=== PATIENT | male | born 1940 | race Two or more races ===

== ENCOUNTER 2024-04-18 11:04 | Emergency (ER) | payer OTHER, SELFPAY ==
--- NOTE | 2024-04-18 11:23 | PD.EDRME ---
Rapid Medical Screening Exam RME Arrival date/time: 04/18/24 11:04 Chief Complaint: Fall Time Seen by Provider: 04/18/24 11:20 RME Narrative: Home nurse was taking patient outside this morning when he fell and hit back of head against the door. No loc. patient takes xarelto.
--- NOTE | 2024-04-18 11:24 | XR_ITS ---
Examination: CT brain head without contrast. 2-D sagittal coronal reconstructions Date and time of exam:April 18, 2024 1134 hours Comparison October 31, 2023 INDICATIONS: Patient fell today with injury to the head, head pain CTDI: vol (mGy):50.9 DLP: (mGycm):1104 Technique: Multiple CT axial sections of the brain have been obtained, 5 mm slice thickness. Contrast has not been administered. 2-D sagittal, coronal reconstructions have been obtained Low dose protocols were performed. One or more of the following dose reduction techniques were used; automated exposure control, adjustment of the mA and/or KV according to patient size, use of iterative reconstruction technique. Findings: Mild ventricular enlargement. Intra-axial or extra-axial hemorrhage density is not seen. No mass effect or midline shift Basal cisterns are not remarkable. Fourth ventricle is midline. Cranial vault intact. Impression: Negative for acute hemorrhage, mass effect or midline shift
--- NOTE | 2024-04-18 11:24 | XR_ITS ---
Examination: CT cervical spine without contrast 2-D sagittal reconstructions 2-D coronal reconstructions 3-D reconstructions. Exam date and time:April 18, 2024 1134 hours INDICATIONS: Patient fell today with into the neck, neck pain CTDI:vol (mGy) 7.66 DLP: (mGycm) 183 Technique: Multiple 2 mm axial sections of the cervical spine have been obtained. The coronal and sagittal reconstructions have been obtained. 3-D reconstructions have been obtained. Low dose protocols were performed. One or more of the following dose reduction techniques were used; automated exposure control, adjustment of the mA and/or KV according to patient size, use of iterative reconstruction technique. Findings: Axial sections demonstrate intact base of the skull. C1 exhibit satisfactory relationship to the odontoid. No acute cervical vertebral body fracture seen. Alignment posterior spinous processes satisfactory. Advanced degenerative disc disease C4-C5 C6-C7 Impression: No acute cervical fracture. Very heavy carotid vascular calcification, consider correlation with carotid Doppler sonography follow-up
[2024-04-18 11:30] VITALS: BP 128/70; PULSE 60; RESP 16; TEMP 36.7; O2SAT 97; BMI 22.3
--- NOTE | 2024-04-18 12:05 | PD.EDFALL ---
ED Fall Injury RME/HPI General Chief Complaint: Fall Stated Complaint: Fall hit back of his head Time Seen by Provider: 04/18/24 11:20 Source: patient, family, RN notes reviewed and old records reviewed Arrival date/time: 04/18/24 11:04 Mode of arrival: wheelchair Limitations: no limitations RME / HPI RME / HPI Narrative: 84yom with pmhx dementia, decreased mobility presents to ED with son for head injury that occurred this morning. [facility] states home health care nurse was transferring patient outside when they lost their balance, patient hit back of head against the doorknob. No LOC or n/v reported. Patient c/o mild headache, no neck pain. 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 Of note, patient has pacemaker and is on Xarelto. Related Data Home Medications ?Medication ?Instructions ?Recorded ?Confirmed cartilage 40 mg-collagen II 10 1 tab PO QDAY 09/03/20 02/23/23 mg-boron 5 mg-hyaluronate 3.3 mg tablet (Invup) cholecalciferol (vitamin D3) 25 25 mcg PO QDAY 09/03/20 02/23/23 mcg (1,000 unit) tablet finasteride 5 mg tablet 5 mg PO QDAY 09/03/20 02/23/23 levothyroxine 175 mcg tablet 175 mcg PO QDAY 09/03/20 02/23/23 lisinopril 5 mg tablet 5 mg PO QDAY 09/03/20 02/23/23 omega-3 fatty acids 500 mg capsule 1,000 mg PO QDAY 09/03/20 02/23/23 pantoprazole 40 mg tablet,delayed 40 mg PO QDAY 09/03/20 02/23/23 release rivaroxaban 20 mg tablet 20 mg PO QDAY 09/03/20 02/23/23 tamsulosin 0.4 mg capsule 0.8 mg PO QDAY 09/03/20 02/23/23 atorvastatin 80 mg tablet 80 mg PO QDAY 10/25/23 10/25/23 cefuroxime axetil 500 mg tablet mg 10/25/23 finasteride 5 mg tablet 5 mg PO QDAY 10/25/23 10/25/23 lacosamide 100 mg tablet (Vimpat) 150 mg PO BID 10/25/23 10/25/23 levetiracetam 500 mg 1,000 mg PO BID 10/25/23 10/25/23 tablet,extended release 24 hr levofloxacin 750 mg tablet mg 10/25/23 levothyroxine 125 mcg tablet 125 mcg PO QDAY 10/25/23 10/25/23 Previous Rx's ?Medication ?Instructions ?Recorded levetiracetam 1,000 mg tablet 1,000 mg PO BID #60 tabs 04/08/21 (Keppra) cefuroxime axetil 500 mg tablet 500 mg PO BID #14 tabs 07/28/23 cephalexin 500 mg capsule 500 mg PO BID #10 caps 10/31/23 ciprofloxacin HCl 500 mg tablet 500 mg PO BID #14 tabs 12/17/23 (Cipro) acetaminophen 500 mg tablet 500 mg PO Q6H PRN pain #30 tabs 04/18/24 (Tylenol Extra Strength) Allergies Allergy/AdvReac Type Severity Reaction Status Date / Time No Known Allergies Allergy Verified 12/17/23 11:17 Review of Systems Review of Systems Systems Reviewed: All systems reviewed, normal except as documented Constitutional Constitutional: Reports headache(s) ENT Ears, Nose, Mouth, and Throat: Denies dizziness, Reports headache(s) and Denies neck pain Cardiovascular Cardiovascular: Denies syncope Musculoskeletal Musculoskeletal: Denies neck pain Neurologic Neurologic: Denies dizziness, Reports headache(s) and Denies syncope Past Medical History Past Medical History NEUROLOGIC: Positive Dementia and Seizures CARDIAC: Positive Cardiac Disorders, Coronary Artery Disease, Hypercholesterolemia and Hypertension; Negative Congestive Heart Failure RESPIRATORY: Negative Chronic Obstructive Pulmonary Disease (COPD) GASTROINTESTINAL: Positive Gastrointestinal Disorders and Gastroesophageal Reflux Disease GENITOURINARY: Positive Genitourinary Disorders and Benign Prostatic Hyperplasia; Negative Renal Disease ENDOCRINE: Positive Endocrine Disorders and Hypothyroidism; Negative Diabetes Mellitus Type 1 or Diabetes Mellitus Type 2 Surgical History SURGICAL: Positive Coronary Artery Bypass Graft and Pacemaker Social History SMOKING STATUS: Never smoker ED Exam General Limitations: Present no limitations General appearance: Present alert and in no apparent distress Head Head exam: Present normocephalic and other (Small posterior scalp contusion/hematoma) Eye Eye exam: Present normal appearance, PERRL and EOMI ENT ENT exam: Present normal exam and mucous membranes moist Neck Neck exam: Present normal inspection and full ROM; Absent tenderness Chest Chest inspection: Present normal inspection and symmetric chest wall rise Respiratory Respiratory exam: Present normal lung sounds bilaterally; Absent respiratory distress Cardiovascular Cardiovascular exam: Present regular rate and normal rhythm Extremities Exam Extremities exam: Present normal inspection and full ROM; Absent tenderness Back Exam Back exam: Absent paraspinal tenderness or vertebral tenderness Neurological Exam Neurological exam: Present alert and other (Neuro at baseline) Psychiatric Psychiatric exam: Present normal affect and normal mood Skin Skin exam: Present warm, dry, intact and normal color Course Quality Measures none Orders Category Date Time Status CT cervical spine wo con Stat Exams 04/18/24 11:[address] head/brain wo con Stat Exams 04/18/24 11:24 Completed Acetaminophen Tab [Tylenol ES Tab] Med 04/18/24 12:05 Discontinued 1,000 mg PO X1 ONE Vital Signs Vital signs: Vital Signs Temperature 98.1 F 04/18/24 11:30 Pulse Rate 60 04/18/24 11:30 Respiratory Rate 16 04/18/24 11:30 Blood Pressure 128/70 04/18/24 11:30 Pulse Oximetry (%) 97 04/18/24 11:30 Oxygen Delivery Method Room Air 04/18/24 11:30 Fall MDM Narrative MDM Narrative:: 84yom with pmhx dementia, decreased mobility presents to ED with son for head injury that occurred this morning. [facility] home health care nurse was transferring patient outside when they lost their balance, patient hit back of head against the doorknob. No LOC or n/v reported. Patient c/o mild headache, no neck pain. 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 Of note, patient has pacemaker and is on Xarelto. Imaging is negative, no evidence of ICH or cervical fracture. Patient neuro at baseline. Recommended ice application for scalp swelling, Tylenol prn pain. Stable for discharge, RTED precautions given. Patient data External records reviewed:: [facility] previous records (12/17/2023 ED visit for COVID) Clinical information provided by:: patient and family (Son) Social determinants that could affect healthcare access:: none Patient has the following chronic illnesses:: Chronic anticoagulation use, dementia How is presenting disease/condition affected by chronic disease/condition?: exacerbated by Evaluation data The following diagnostics were reviewed and interpreted by me:: radiology exam(s) Lab and/or radiology exams considered but not ordered:: CBC, CMP, coags Interpretation Summary: CT head: No evidence of ICH per my read Medications / Prescriptions Medications or Prescriptions considered but not ordered:: None Medication administrations:: Medication Administration History Discontinued Medications Acetaminophen (Acetaminophen 500 Mg Tablet) 1,000 mg PO X1 ONE Stop: 04/18/24 12:06 Last Admin: 04/18/24 12:14 Dose: 1,000 mg Documented By: ED Above medication administered in ED Consultations Consultation(s) initiated? (list below): No Diagnosis Fall Differential Diagnosis: other (Contusion, hematoma, laceration, abrasion, ICH, skull fracture, fall) Most likely diagnosis given after review of the tests above:: Scalp contusion Admission Indicated Admission indicated?: not indicated Admission Request Was there a request for admission?: No Disposition Plan Disposition Plan: Discharge Discharge Attestation Discharge Attestation: The patient and all family members were given an opportunity to ask questions and understood the discharge instructions. Discharge instructions specifically effects, indications for sooner follow up or return to the emergency department, and the expected course of current diagnosis. Patient condition: Stable Discharge Plan Plan Patient Disposition: HOME (Self Care) Patient condition on transfer: Stable Prescriptions/Referrals Prescriptions/Med Rec: New acetaminophen [Tylenol Extra Strength] 500 mg tablet 500 mg PO Q6H PRN (Reason: pain) Qty: 30 0RF No Action levetiracetam [Keppra] 1,000 mg tablet 1,000 mg PO BID Qty: 60 3RF levothyroxine 175 mcg Tablet 175 mcg PO QDAY tamsulosin 0.4 mg Capsule 0.8 mg PO QDAY pantoprazole 40 mg Tablet,Delayed Release (Dr/Ec) 40 mg PO QDAY lisinopril 5 mg Tablet 5 mg PO QDAY finasteride 5 mg Tablet 5 mg PO QDAY cholecalciferol (vitamin D3) 25 mcg (1,000 unit) Tablet 25 mcg PO QDAY omega-3 fatty acids 500 mg Capsule 1,000 mg PO QDAY rivaroxaban 20 mg Tablet 20 mg PO QDAY Invup 40-10-5-3.3 mg Tablet 1 tab PO QDAY cefuroxime axetil 500 mg tablet 500 mg PO BID Qty: 14 0RF cefuroxime axetil 500 mg tablet Patient Comments: TAKE 1 TABLET BY MOUTH TWICE A DAY lacosamide [Vimpat] 100 mg Tablet 150 mg PO BID atorvastatin 80 mg Tablet 80 mg PO QDAY levothyroxine 125 mcg Tablet 125 mcg PO QDAY levofloxacin 750 mg tablet Patient Comments: TAKE 1 TABLET BY MOUTH EVERY DAY FOR 10 DAYS finasteride 5 mg Tablet 5 mg PO QDAY levetiracetam 500 mg Tablet Extended Release 24 Hr 1,000 mg PO BID cephalexin 500 mg capsule 500 mg PO BID Qty: 10 0RF ciprofloxacin HCl [Cipro] 500 mg tablet 500 mg PO BID Qty: 14 0RF Referrals: No Primary/Family,Physician [Primary Care Provider] - In 1 week Problem List Clinical Impression: Head injury, Contusion of scalp Patient/Caregiver Discharge Instructions Education Materials: ED Scalp Contusion Print Language: Maltese Stand Alone Forms: Dona Award Info., Patient Portal Info Letter PA/CATTLE DIPPER Supervising Physician PA/CATTLE DIPPER Supervising Physician: Ana
[2024-04-18] MEDS: ACETAMINOPHEN 500 MG TABLET 1000 MG PO (12:14)
== END 2024-04-18 12:26 | disposition home or self-care (01) ==
PROVIDERS: Emergency Provider Emergency Medicine
DX: S00.03XA Contusion of scalp, initial encounter (principal); M54.2 Cervicalgia; W19.XXXA Unspecified fall, initial encounter
CPT/HCPCS: 70450; 72125; 80053; 85025; 85610; 85730; 99284; A9270

== ENCOUNTER 2024-06-16 14:15 | Emergency (ER) | payer OTHER, SELFPAY ==
[2024-06-16] VITALS (11 sets, daily range): BP systolic 62–152; BP diastolic 43–91; PULSE 60–100; RESP 14–25; TEMP 34.7–39.3; O2SAT 89–100; BMI 19.3
--- NOTE | 2024-06-16 14:46 | PD.EDMALE ---
ED Male Genitalurinary RME/HPI General Chief complaint: General Adult/Misc Complain Stated complaint: STAT Time Seen by Provider: 06/16/24 14:32 Arrival date/time: 06/16/24 14:15 RME / HPI RME / HPI Narrative: DR. VELOZ MAIN ED EVALUATION: 84 year old male presents to the Emergency Department [facility] with complaint of bleeding from the penis after removal of the Pal catheter. Home nurse was replacing the Pal catheter and it started bleeding so she called an ambulance. After home nurse removed the Pal then the penis started bleeding and she did not attempt to insert a new one. Per EMS, blood pressure was low on scene, 70/ palpable and 1 L of fluids were given by EMS en route. Nurse reported initial rectal temperature of 94.4 F here. No vomiting or diarrhea. No fevers or chills. No rectal bleeding or constipation. No ROS or history from patient due to his Alzheimer's history. PMHx: Alzheimer?s history, seizures on Keppra, hypertension, on the blood thinner Xarelto, and chronic right sided weakness for many years but no history of stroke. Walks at home with a walker, baseline. Thyroid cancer 6 years ago with thyroidectomy Related Data Home Medications ?Medication ?Instructions ?Recorded ?Confirmed cartilage 40 mg-collagen II 10 1 tab PO QDAY 09/03/20 02/23/23 mg-boron 5 mg-hyaluronate 3.3 mg tablet ([employer]) cholecalciferol (vitamin D3) 25 25 mcg PO QDAY 09/03/20 02/23/23 mcg (1,000 unit) tablet finasteride 5 mg tablet 5 mg PO QDAY 09/03/20 02/23/23 levothyroxine 175 mcg tablet 175 mcg PO QDAY 09/03/20 02/23/23 lisinopril 5 mg tablet 5 mg PO QDAY 09/03/20 02/23/23 omega-3 fatty acids 500 mg capsule 1,000 mg PO QDAY 09/03/20 02/23/23 pantoprazole 40 mg tablet,delayed 40 mg PO QDAY 09/03/20 02/23/23 release rivaroxaban 20 mg tablet 20 mg PO QDAY 09/03/20 02/23/23 tamsulosin 0.4 mg capsule 0.8 mg PO QDAY 09/03/20 02/23/23 atorvastatin 80 mg tablet 80 mg PO QDAY 10/25/23 10/25/23 cefuroxime axetil 500 mg tablet mg 10/25/23 finasteride 5 mg tablet 5 mg PO QDAY 10/25/23 10/25/23 lacosamide 100 mg tablet (Vimpat) 150 mg PO BID 10/25/23 10/25/23 levetiracetam 500 mg 1,000 mg PO BID 10/25/23 10/25/23 tablet,extended release 24 hr levofloxacin 750 mg tablet mg 10/25/23 levothyroxine 125 mcg tablet 125 mcg PO QDAY 10/25/23 10/25/23 Previous Rx's ?Medication ?Instructions ?Recorded levetiracetam 1,000 mg tablet 1,000 mg PO BID #60 tabs 04/08/21 (Keppra) cefuroxime axetil 500 mg tablet 500 mg PO BID #14 tabs 07/28/23 cephalexin 500 mg capsule 500 mg PO BID #10 caps 10/31/23 ciprofloxacin HCl 500 mg tablet 500 mg PO BID #14 tabs 12/17/23 (Cipro) acetaminophen 500 mg tablet 500 mg PO Q6H PRN pain #30 tabs 04/18/24 (Tylenol Extra Strength) Allergies Allergy/AdvReac Type Severity Reaction Status Date / Time No Known Allergies Allergy Verified 06/16/24 14:56 Review of Systems Review of Systems ROS Unobtainable: unobtainable due to medical condition (No ROS or history from patient due to his Alzheimer's history.) Past Medical History Past Medical History NEUROLOGIC: Positive Dementia and Seizures CARDIAC: Positive Cardiac Disorders, Coronary Artery Disease, Hypercholesterolemia and Hypertension; Negative Congestive Heart Failure RESPIRATORY: Negative Chronic Obstructive Pulmonary Disease (COPD) GASTROINTESTINAL: Positive Gastrointestinal Disorders and Gastroesophageal Reflux Disease GENITOURINARY: Positive Genitourinary Disorders and Benign Prostatic Hyperplasia; Negative Renal Disease ENDOCRINE: Positive Endocrine Disorders and Hypothyroidism; Negative Diabetes Mellitus Type 1 or Diabetes Mellitus Type 2 Surgical History SURGICAL: Positive Coronary Artery Bypass Graft and Pacemaker Social History SMOKING STATUS: Never smoker SUBSTANCE USE: methamphetamine (history) ALCOHOL: Never ED Exam Narrative Physical exam: GENERAL APPEARANCE: Well hydrated, well nourished. Disoriented but at baseline due to his Alzheimer?s; unable to follow commands just keeps answering his name. VITALS: All vitals were reviewed and the pulse ox is 99% on room air which is normal according to my interpretation. HEENT: Normocephalic, atramatic, EOMI, EACs are patent. There is no bulge or retraction. Throat without erythema or exudate. Moist oromucosa. No jaundice NECK: Supple, no JVD or bruits. CARDIOVASCULAR: Heart regular without S3-S4 or murmur. No rubs or gallops. LUNGS/CHEST: Clear to auscultation bilaterally. No rales, rhonchi, or wheezing. Normal inspection. ABDOMEN: Soft, nontender, with normal bowel sounds. No pulsatile masses. No rebound, rigidity, or guarding. No incarcerated hernia. Normal inspection and palpation. EXTREMITIES: No edema, clubbing, or cyanosis. Intact CSM. Normal inspection and palpation. SKIN: Warm and dry without rashes. Normal inspection. MUSCULOSKELETAL: No gross deformity. NEURO: At his baseline. Disoriented but at baseline due to his Alzheimer?s; unable to follow commands just keeps answering his name PSYCHIATRIC: At his baseline. Course Quality Measures none Orders Category Date Time Status CT Screening NOW Care 06/16/24 17:[address] abdomen pelvis w con Stat Exams 06/16/24 17:[address] head/brain wo con Stat Exams 06/16/24 18:03 Ordered IR fluoroscopy <1hr Stat Exams 06/16/24 Ordered ABO/RH Type Stat Lab 06/16/24 15:20 Completed CBC Stat Lab 06/16/24 15:20 Completed CMP [Comprehensive Metabolic Panel] Stat Lab 06/16/24 15:20 Completed PT [Prothrombin Time with INR] Stat Lab 06/16/24 15:20 Completed PTT [Partial Thromboplastin Time] Stat Lab 06/16/24 15:20 Completed UA, C/S IF [Urinalysis, C/S if Indicated] Stat Lab 06/16/24 15:09 Ordered Sodium Chloride 0.9% 1000 ml [Ns] 1,000 ml Med 06/16/24 14:59 Active IV 250 mls/hr Vital Signs Vital signs: Vital Signs Temperature 94.4 F L 06/16/24 14:12 Pulse Rate 65 06/16/24 14:12 Respiratory Rate 14 06/16/24 14:12 Blood Pressure 62/43 L 06/16/24 14:12 Pulse Oximetry (%) 96 06/16/24 14:12 Oxygen Delivery Method Room Air 06/16/24 14:12 Urogenital - Male MDM Narrative MDM Narrative:: I, Stacy Vela, am scribing for and in the presence of Dr. Veloz. CBC unremarkable except for the chronic platelet low count of 61,000. CMP negative. UA is unable. Still pending. Pro time is 20 and PTT is 40. The patient is on Xarelto for BX. My intention is to get a retrograde urethrogram. I did speak to Dr. Damon Pineda. But the IR tech had left so the procedure is not possible tonight. I spoke Dr. Damon Pineda, radiologist on-call. He said he can do it tomorrow morning. 6 PM, the end of my shift. The patient is pending CT brain and CT abdomen and pelvic with IV contrast. The patient is stable and is signed out to Dr. Reynolds Patient data External records reviewed:: [facility] previous records (Reviewed last ED visit dated 04/18/24, discharged with the following: Contusion of scalp) and EMS form Clinical information provided by:: EMS and pipe roller Social determinants that could affect healthcare access:: substance use (methamphetamine history) Patient has the following chronic illnesses:: Alzheimer?s history, seizures on Keppra, hypertension, on the blood thinner Xarelto, and chronic right sided weakness for many years but no history of stroke. Walks at home with a walker, baseline. Thyroid cancer 6 years ago with thyroidectomy How is presenting disease/condition affected by chronic disease/condition?: uneffected by Evaluation data The following diagnostics were reviewed and interpreted by me:: lab results and radiology exam(s) Lab and/or radiology exams considered but not ordered:: none Interpretation Summary: See above under MDM narrative. Medications / Prescriptions Medications or Prescriptions considered but not ordered:: none Medication administrations:: Medication Administration History Sodium Chloride (Ns) 1,000 mls @ 250 mls/hr IV .Q4H ONE Stop: 06/16/24 18:58 Last Infusion: 06/16/24 17:20 Dose: Infused Documented By: Admin: 06/16/24 15:08 Dose: 250 mls/hr Documented By: see above Consultations Consultation(s) initiated? (list below): No Diagnosis Urogenital Male Differential Diagnosis: urinary tract infection, urethritis and other (Urethral tear) Most likely diagnosis given after review of the tests above:: Unable to determine the cause of gross hematuria at this time Admission Indicated Admission indicated?: not indicated (Pending CTs) Admission Request Was there a request for admission?: No Disposition Plan Disposition Plan: other (specify) (Signout to Dr. Reynolds) Discharge Plan Plan Disposition Comment: Stable at signout Prescriptions/Referrals Prescriptions/Med Rec: No Action levetiracetam [Keppra] 1,000 mg tablet 1,000 mg PO BID Qty: 60 3RF levothyroxine 175 mcg Tablet 175 mcg PO QDAY tamsulosin 0.4 mg Capsule 0.8 mg PO QDAY pantoprazole 40 mg Tablet,Delayed Release (Dr/Ec) 40 mg PO QDAY lisinopril 5 mg Tablet 5 mg PO QDAY finasteride 5 mg Tablet 5 mg PO QDAY cholecalciferol (vitamin D3) 25 mcg (1,000 unit) Tablet 25 mcg PO QDAY omega-3 fatty acids 500 mg Capsule 1,000 mg PO QDAY rivaroxaban 20 mg Tablet 20 mg PO QDAY [facility] 40-10-5-3.3 mg Tablet 1 tab PO QDAY cefuroxime axetil 500 mg tablet 500 mg PO BID Qty: 14 0RF cefuroxime axetil 500 mg tablet Patient Comments: TAKE 1 TABLET BY MOUTH TWICE A DAY lacosamide [Vimpat] 100 mg Tablet 150 mg PO BID atorvastatin 80 mg Tablet 80 mg PO QDAY levothyroxine 125 mcg Tablet 125 mcg PO QDAY levofloxacin 750 mg tablet Patient Comments: TAKE 1 TABLET BY MOUTH EVERY DAY FOR 10 DAYS finasteride 5 mg Tablet 5 mg PO QDAY levetiracetam 500 mg Tablet Extended Release 24 Hr 1,000 mg PO BID cephalexin 500 mg capsule 500 mg PO BID Qty: 10 0RF ciprofloxacin HCl [Cipro] 500 mg tablet 500 mg PO BID Qty: 14 0RF acetaminophen [Tylenol Extra Strength] 500 mg tablet 500 mg PO Q6H PRN (Reason: pain) Qty: 30 0RF Referrals: No Primary/Family,Physician [Primary Care Provider] - In 1 week Problem List Clinical Impression: Gross hematuria Patient/Caregiver Discharge Instructions Print Language: Turkish
[2024-06-16] MEDS: SODIUM CHLORIDE 0.9% 1000 ML 1,000 ML 250 ML IV (15:08)
[2024-06-16 15:39] LABS: Basophils % (Auto) 0 % (0-2.5); Eosinophils % (Auto) 1 % (0-10); Hemoglobin 11.8 g/dL (13.5-16.0); Immature Granulocytes % (Auto) 0 % (0-0); Immature Granulocytes Auto 0.02 Thou/mm3 (0.00-0.00); Lymphocytes # (Auto) 1.1 Thou/mm3 (1.0-4.8); Lymphocytes % (Auto) 15 % (10-50); Mean Corpuscular HGB Conc 34.7 g/dl (31.0-37.0); Mean Corpuscular Hemoglobin 31.2 pg (25.0-35.0); Mean Corpuscular Volume 90 fL (80-100); Monocytes # (Auto) 0.1 Thou/mm3 (0.0-0.8); Monocytes % (Auto) 1 % (0-12); Neutrophils # (Auto) 6.4 Thou/mm3 (1.8-7.7); Neutrophils % (Auto) 83 % (37-80); Nucleated Red Blood Cell % 0 /100 WBC (0); RDW Standard Deviation 45.2 fL (35.1-43.9); Red Blood Count 3.78 Miln/mm3 (4.50-5.90); White Blood Count 7.7 Thou/mm3 (3.8-10.6)
[2024-06-16 16:05] LABS: Alanine Aminotransferase 13 U/L (10-49); Albumin, Serum 2.7 gm/dL (3.4-4.8); Albumin/Globulin Ratio 1.1 (1.2-2.2); Alkaline Phosphatase 71 U/L (46-116); Anion Gap 9 (7-16); Aspartate Amino Transferase 14 U/L (0-34); BUN/Creatinine Ratio 13 Ratio (12-20); Bilirubin,Total 0.6 mg/dL (0.3-1.2); Blood Urea Nitrogen 10 mg/dL (9-23); Carbon Dioxide 24.1 mMol/L (20.0-31.0); Chloride 108 mMol/L (98-107); Creatinine (Component) 0.8 mg/dL (0.6-1.3); Estimated Creatinine Clearance 54.8 mL/min (>60); Globulin 2.5 gm/dL (2.3-3.5); Glucose 113 mg/dL (74-106); Osmolality,Calculated 281 (275-295); Potassium 3.9 mMol/L (3.4-5.1); Sodium 141 mMol/L (136-145); Total Protein 5.2 gm/dL (5.7-8.2); eGFR > 60 See Note
[2024-06-16 16:10] LABS: Platelet Count 66 Thou/mm3 (140-440)
[2024-06-16 16:25] LABS: Prothrombin Time 20.7 Seconds (9.0-12.2)
[2024-06-16 17:48] LABS: Slide Review Platelets confirmed
--- NOTE | 2024-06-16 17:57 | XR_ITS ---
Examination: CT abdomen with intravenous contrast CT pelvis with intravenous contrast 2-D coronal reconstructions 2-D sagittal reconstructions Date and time of exam:June 16, 2024 1958 hrs. Indications: Hematuria beginning 3 days ago. CTDI: vol (mGy) 13.4 DLP: (mGycm) 730 Technique: Multiple axial sections of the abdomen and pelvis have been obtained. 64 slice high-resolution scanner used. 3 mm axial sections have been obtained, post intravenous injection 60 cc [id number] 2-D sagittal, coronal reconstructions obtained. Low dose protocols were performed. One or more of the following dose reduction techniques were used; automated exposure control, adjustment of the mA and/or KV according to patient size, use of iterative reconstruction technique. 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 No ureteral calculi Abdominal aortic calcification no aneurysmal dilatation Abundant air and stool in the rectum Transverse prostate dimension 3.5 cm, suspicious for 14 mm enhancing prostate nodule Urinary bladder wall thickening up to 5 mm with air droplets in the urinary bladder Fat-containing left inguinal hernia Advanced degenerative disc disease L2-L3, L3-L4 Impression: Again noted mild left hydronephrosis, 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
--- NOTE | 2024-06-16 18:03 | XR_ITS ---
Examination: CT brain head without contrast. 2-D sagittal coronal reconstructions Date and time of exam:June 16, 2024 1956 hrs. Comparison April 18, 2014 Indication: Confusion altered mental status today CTDI: vol (mGy):51.7 DLP: (mGycm):1103 Technique: Multiple CT axial sections of the brain have been obtained, 5 mm slice thickness. Contrast has not been administered. 2-D sagittal, coronal reconstructions have been obtained Low dose protocols were performed. One or more of the following dose reduction techniques were used; automated exposure control, adjustment of the mA and/or KV according to patient size, use of iterative reconstruction technique. Findings: Mild ventricular enlargement. Intra-axial or extra-axial hemorrhage density is not seen. No mass effect or midline shift Basal cisterns are not remarkable. Fourth ventricle is midline. Cranial vault intact. Impression: Negative for acute hemorrhage, mass effect or midline shift Advise clinical correlation follow-up accordingly
--- NOTE | 2024-06-16 18:24 | EDNOTE_ITS ---
Emergency Room Addendum Addendum Narrative: 1800: Care assumed from Dr. Pinedo, the previous shift emergency physician. Past medical, surgical, social and family history reviewed. Vitals and home medications reviewed. I will assume the care of the patient at this time, pending CT brain and CT abdomen and pelvic with IV contrast. Please refer to the emergency department record for history and examination from initial visit.? The patient demonstrates obvious nonverbal communication, responds normally to painful stimuli, and has not urinated since 12:00 PM, with signs of possible bladder distension. The patient continues in ED observation care. The patients past medical history, social history, and family history were reviewed. The plan of care will include serial examinations. While in ED observation the patient will have access to water, food, and personal hygiene. If the patient takes home medication(s), they will be continued in ED observation. 1914: I was notified that the patient might be experiencing seizure activity. Upon evaluation, the patient's daughter, who was at the bedside, reported that he appeared to be seizing. She stated that he is normally on Keppra and Vimpat, taken twice daily at 11:00 AM and again around this time in the evening. She confirmed that he had taken his morning dose today. I instructed the nurse to administer the scheduled second dose as ordered. The nurse noted that the patient has not voided since his arrival at approximately 12:00 PM. Physical assessment suggests bladder distension. I directed the nurse to proceed with a coude in and out proctor catheterization attempt to relieve urinary retention. 1916: Temperature of 102.4F Sepsis alert initiated. Sepsis reassessment performed consisting of lab review, vitals, physical exam including auscultation of heart, lungs, and visual evaluation of capillary refills, mucosal membranes and extremities. 19:31, the EKG shows an electronically paced rhythm with good sensing and effective capture, according to my interpretation. 1935: The patient presents with a critical condition characterized by continuous bright red blood discharge from the urethra. On physical exam, a full bladder and a palpable suprapubic mass were noted, raising concern for urinary obstruction or trauma. The patient shows signs of sepsis, necessitating urgent intervention. Attempts to place a catheter were unsuccessful, likely due to presumed urethral trauma. Given the severity of the situation and the need for specialized care, a stat transfer to a facility with urology services is required for immediate evaluation and management. Critical care measures have been initiated to stabilize the patient. 194: The case was discussed with Nash at the [facility]. A detailed HPI was provided, including that the patient began hemorrhaging after a home health nurse removed his Proctor catheter, prompting transport to the ED for further evaluation. Since arrival at approximately 12:00 PM, the patient has been hypotensive with persistently soft pressures despite fluid resuscitation. He has developed a fever, met criteria for sepsis, and is being treated for septic shock with aggressive fluid resuscitation and broad-spectrum antibiotics. Due to presumed bladder trauma, a retrograde bladder scan could not be performed. The patient requires urgent intervention by a urologist to address the hemorrhage and drain the bladder. Admission for ongoing management of septic shock will be necessary. 1949: The case was subsequently discussed with Dr. Gutierrez, the on-call urologist, who has accepted the patient for transfer. Critical care measures are ongoing. 1999: The patient was re-assessed, and the daughter at the bedside was updated regarding the patient's condition and plan of care. She was informed that the patient has been accepted for transfer to [facility] for urgent evaluation and management. All questions were addressed, and she expressed understanding and agreement with the plan of care. Critical care measures remain in progress. Discharge Plan Plan Patient Disposition: [facility] Acute Facility Accepting Facility: [facility] Disposition Comment: Accepted by Dr. Gutierrez Services Needed: Urology Patient condition on transfer: Stable for transport Problem List Clinical Impression: #Septic shock, likely secondary to urosepsis #Urethral trauma with active hemorrhage #Urinary retention with bladder distension #Coagulopathy with an elevated INR of 2.0 Critical Care Time Critical Care Time Attestation: Critical care time is approximately 80 minutes excluding any procedure. The high probability of sudden, clinically significant deterioration in the patient?s condition required the highest level of my preparedness to intervene urgently. The services I provided to this patient were to treat and/or prevent clinically significant deterioration. Services included the following: chart data review, reviewing nursing notes and/or old charts, documentation time, design sales consultant collaboration regarding findings and treatment options, medication orders and management, direct patient care, vital sign assessments and ordering, interpreting and reviewing diagnostic studies and lab tests. Aggregate critical care time includes only time during which I was engaged in work directly related to the patient?s care, as described above, whether at bedside or elsewhere in the Emergency Department. It did not include time spent performing other reported procedures or the services of residents, students, nurses or physician assistants. MD Attestation MD Attestation Scribe Attestation: I, Gabriela Goode, am scribing for and in the presence of Dr. Reynolds. Provider Notation: Although this document has been carefully reviewed, there may still be some phonetic and other typographical errors. These errors are purely grammatical due to imperfections in the software program and should not be construed in any way to compromise the substance of the patient's medical care during this visit.
--- NOTE | 2024-06-16 19:08 | PC.NURSE ---
ENTER ROOM TO ASSESS PATIENT AT SHIFT CHANGE. PATIENT APPEARED TO BE HAVING A SEIZURE AT THIS TIME. PER DAUGHTER PATIENT HAS A HISTORY OF SEIZURES. DR. SINGH CALLED TO BEDSIDE AND ORDER A KEPPRA 1000MG IVP.
--- NOTE | 2024-06-16 19:10 | PC.NURSE ---
PATIENT HAS NOT BEEN ABLE TO VOID SINCE 1200 TODAY. PROVIDER SAMANTHA AWARE.
--- NOTE | 2024-06-16 19:15 | EKG_ITS ---
[facility] Test Date: 2024-06-16 Pat Name: AMBERLY MAC Department: Room: - Gender: Male Claims Correspondence Clerk: : 1940 Requested By: Deniz De La Fuente Order Number: [id number] Reading MD: Deniz De La Fuente Measurements Intervals Dr[place]gs Rate: 60 P: FL: QRS: -82 QRSD: 160 T: 0 QT: 393 QTc: 393 Interpretive Statements ELECTRONIC VENTRICULAR PACEMAKER ABNORMAL RHYTHM ECG Compared to ECG 10/31/2023 04:30:33 No significant changes /store/S0/[id number].pdf
[2024-06-16] MEDS: levETIRAcetam INJ 100 MG/ML VIAL 5ML 1000 MG IVP (19:16)
--- NOTE | 2024-06-16 19:20 | PC.NURSE ---
PROVIDER DR SINGH HOLD OFF ON THE FLUIDS ORDERED DUE TO NOT BEING ABLE TO URINATE.
[2024-06-16] MEDS: ACETAMINOPHEN IVPB 1,000 MG/100 ML VIAL 250 MG IV (19:21)
[2024-06-16] MEDS: cefTRIAXone 1,000 MG in SODIUM CHLORIDE 0.9% (P) 50 ML 100 MG IV (19:22)
--- NOTE | 2024-06-16 19:42 | PC.NURSE ---
[facility] FAXED PAPERWORK FOR POSSIBLE UROLOGY TRANSFER, SPOKE WITH KACIE
[2024-06-16 19:52] LABS: Lactate (Lactic Acid) 7.8 mMol/L (0.4-2.0)
--- NOTE | 2024-06-16 19:57 | PC.NURSE ---
ACCEPTED [facility] ER TO ER DR BOLDEN [phone]
[2024-06-16 19:58] LABS: B-Type Natriuretic Peptide 142 pg/mL (0-100)
[2024-06-16 20:06] LABS: LDH (Lactate Dehydrogenase) 152 U/L (120-246); Lipase 23 U/L (12-53); Magnesium 1.6 mg/dL (1.6-2.6); Phosphorous 3.9 mg/dL (2.4-5.1); Procalcitonin 1.61 ng/ml (0.0-0.49); Troponin I 0.032 ng/mL (0.0-0.045)
--- NOTE | 2024-06-16 21:40 | PC.NURSE ---
ATTEMPTED TO CALL REPORT TO [facility] PER NURSE SHE WILL CALL BACK FOR REPORT.
[2024-06-16 22:33] LABS: Reflex Lactate? Y
== END 2024-06-16 21:33 | disposition short-term general hospital (02) ==
PROVIDERS: Emergency Medicine; Emergency Provider Emergency Medicine
DX: A41.9 Sepsis, unspecified organism (principal); R65.21 Severe sepsis with septic shock; S37.30XA Unspecified injury of urethra, initial encounter; R31.0 Gross hematuria; I10 Essential (primary) hypertension; R56.9 Unspecified convulsions; G30.9 Alzheimer's disease, unspecified; N32.89 Other specified disorders of bladder; R33.9 Retention of urine, unspecified; D68.9 Coagulation defect, unspecified; F02.80 Dementia in other diseases classified elsewhere, unspecified severity, without behavioral disturbance, psychotic disturbance, mood disturbance, and anxiety; E78.00 Pure hypercholesterolemia, unspecified; E89.0 Postprocedural hypothyroidism; I25.10 Atherosclerotic heart disease of native coronary artery without angina pectoris; Z85.850 Personal history of malignant neoplasm of thyroid; Z95.0 Presence of cardiac pacemaker; Z95.1 Presence of aortocoronary bypass graft; Z79.01 Long term (current) use of anticoagulants; Z79.899 Other long term (current) drug therapy; Y84.6 Urinary catheterization as the cause of abnormal reaction of the patient, or of later complication, without mention of misadventure at the time of the procedure; Y73.2 Prosthetic and other implants, materials and accessory gastroenterology and urology devices associated with adverse incidents
CPT/HCPCS: 36415; 36600; 70450; 74177; 80053; 81001; 82803; 83605; 83615; 83690; 83735; 83880; 84100; 84145; 84484; 85025; 85610; 85730; 86900; 86901; 87040; 87077; 87086; 87186; 93005; 96361; 96365; 96368; 96375; 99291; 99292; A4649; J0131; J0696; J1953; J7030; J7050; Q9967